=== PATIENT | female | born 1995 | race Caucasian/White ===

== ENCOUNTER 2018-03-04 18:05 | Outpatient (CLI) | payer OTHER ==
[2018-03-04 18:58] LABS: APPEARANCE,URINE SLIGHTLY-CLOUDY; BILIRUBIN,URINE NEGATIVE (NEGATIVE); COLOR,URINE YELLOW; GLUCOSE, URINE NEGATIVE (NEGATIVE); KETONES,URINE NEGATIVE (NEGATIVE); LEUKOCYTE ESTERASE,URINE SMALL (NEGATIVE); NITRITE,URINE NEGATIVE (NEGATIVE); PROTEIN,URINE NEGATIVE (NEGATIVE); URINE SPECIFIC GRAVITY 1.012; UROBILINOGEN,URINE NEGATIVE mg/dL (<2.0)
--- NOTE | 2018-03-04 19:11 | Non Stress Test Report ---
Non Stress Test Datetime Report Generated by CPN: 03/04/2018 19:11 DEMOGRAPHIC EGA NST: 32.3 INDICATION Indication for Study: Ordered by Provider MONITORING Monitor Explained: Monitor Explained; Test Explained; Patient Verbalized Understanding Time on Monitor: 03/04/2018 18:24 Time off Monitor: 03/04/2018 19:10 NST Duration: 46 NST INTERVENTIONS NST Interventions: PO Hydration; Reposition Patient Physician Notified NST: Dr.Arriaga BABY A: [id number] BABY A Movement : Present Contraction Frequency : 0 FHR Baseline : 130 Accelerations : 15X15 Decelerations : None Variability : Moderate 6-25bpm NST Review: Meets Criteria for Reactive NST NST Results: Reactive NST REPORT Report Trigger: Send Report
[2018-03-04 19:13] LABS: URINE AMPHETAMINES SCREEN NEGATIVE; URINE BARBITURATES SCREEN NEGATIVE; URINE BENZODIAZEPINES SCREEN NEGATIVE; URINE COCAINE SCREEN NEGATIVE; URINE MARIJUANA (THC) SCREEN NEGATIVE; URINE PHENCYCLIDINE SCREEN NEGATIVE
[2018-03-04 19:23] LABS: URINE METHADONE SCREEN NEGATIVE
== END 2018-03-04 19:15 | disposition home or self-care (01) ==
LOC: LC 18:05
PROVIDERS: ATTEND Obstetrics & Gynecology Gynecology
PROC: 4A1HXCZ Monitoring of Products of Conception, Cardiac Rate, External Approach (ICD-10-PCS; principal; 2018-03-04)
DX: O9A.213 Injury, poisoning and certain other consequences of external causes complicating pregnancy, third trimester (principal); Z3A.32 32 weeks gestation of pregnancy; W19.XXXA Unspecified fall, initial encounter
CPT/HCPCS: 59025; 80307; 81001

== ENCOUNTER 2018-05-01 18:37 | Outpatient (CLI) | payer OTHER ==
[2018-05-01 19:42] LABS: APPEARANCE,URINE CLOUDY; BILIRUBIN,URINE NEGATIVE (NEGATIVE); COLOR,URINE YELLOW; GLUCOSE, URINE NEGATIVE (NEGATIVE); KETONES,URINE NEGATIVE (NEGATIVE); LEUKOCYTE ESTERASE,URINE LARGE (NEGATIVE); NITRITE,URINE NEGATIVE (NEGATIVE); PROTEIN,URINE NEGATIVE (NEGATIVE); UROBILINOGEN,URINE NEGATIVE mg/dL (<2.0)
[2018-05-01 19:59] LABS: URINE AMPHETAMINES SCREEN NEGATIVE; URINE BARBITURATES SCREEN NEGATIVE; URINE BENZODIAZEPINES SCREEN NEGATIVE; URINE COCAINE SCREEN NEGATIVE; URINE MARIJUANA (THC) SCREEN NEGATIVE; URINE METHADONE SCREEN NEGATIVE; URINE PHENCYCLIDINE SCREEN NEGATIVE
== END 2018-05-01 20:26 | disposition home or self-care (01) ==
LOC: LC 18:37
PROVIDERS: ATTEND Obstetrics & Gynecology
PROC: 4A1HXCZ Monitoring of Products of Conception, Cardiac Rate, External Approach (ICD-10-PCS; principal; 2018-05-01)
DX: O48.0 Post-term pregnancy (principal); Z3A.40 40 weeks gestation of pregnancy
CPT/HCPCS: 80307; 81005

== ENCOUNTER 2018-05-04 06:33 | Inpatient (IN) | payer OTHER ==
[2018-05-04] MEDS ORDERED: RINGERS SOLUTION,LACTATED 300 ML IV ONE (06:41)
[2018-05-04] MEDS ORDERED: RINGERS SOLUTION,LACTATED 1,000 ML IV PRN (06:41)
[2018-05-04] MEDS ORDERED: OXYTOCIN/NORMAL SALINE 20 UNIT/1,000 ML RTUINJ IV PRN (06:41)
[2018-05-04 07:21] LABS: ABSOLUTE BASOPHILS # (AUTO) 0.1 10^3/uL (0.0-0.2); ABSOLUTE EOSINOPHILS # (AUTO) 0.1 10^3/uL (0.0-0.6); ABSOLUTE LYMPHOCYTES (AUTO) 1.6 10^3/uL (0.5-4.7); ABSOLUTE MONOCYTES (AUTO) 0.8 10^3/uL (0.1-1.4); ABSOLUTE NEUT (AUTO) 10.1 10^3/uL (1.7-8.2); BASOPHILS % (AUTO) 0.4 % (0-2); EOSINOPHILS % (AUTO) 0.6 % (0-6); HEMATOCRIT 33.6 % (36.0-47.0); HEMOGLOBIN 11.8 g/dL (12.0-15.5); LYMPHOCYTES % (AUTO) 12.6 % (13-45); MEAN CORPUSCULAR HEMOGLOBIN 30.8 pg (27.0-33.4); MEAN CORPUSCULAR HGB CONC 35.2 g/dL (32.0-36.0); MEAN CORPUSCULAR VOLUME 88 fl (80-97); MONOCYTES % (AUTO) 6.1 % (3-13); PLATELET COUNT 161 10^3/uL (150-450); RED BLOOD COUNT 3.84 10^6/uL (3.72-5.28); SEGMENTED NEUTROPHILS % (AUTO) 80.3 % (42-78); TOTAL CELLS COUNTED % (AUTO) 100 %; WHITE BLOOD COUNT 12.5 10^3/uL (4.0-10.5)
[2018-05-04] MEDS ORDERED: OXYTOCIN 10 UNIT/ML VIAL ONE (07:26)
[2018-05-04] MEDS ORDERED: OXYTOCIN/NORMAL SALINE 20 UNIT/1,000 ML RTUINJ ONE (07:26)
[2018-05-04] MEDS ORDERED: MISOPROSTOL 0.2 MG TABLET ONE (07:26)
[2018-05-04] MEDS ORDERED: LIDOCAINE 1% INJ-PF (10 MG/ML) 30 ML SDV ONE (07:26)
[2018-05-04 07:53] LABS: APPEARANCE,URINE CLOUDY; BILIRUBIN,URINE NEGATIVE (NEGATIVE); COLOR,URINE YELLOW; GLUCOSE, URINE NEGATIVE (NEGATIVE); KETONES,URINE NEGATIVE (NEGATIVE); LEUKOCYTE ESTERASE,URINE LARGE (NEGATIVE); NITRITE,URINE NEGATIVE (NEGATIVE); PROTEIN,URINE NEGATIVE (NEGATIVE); URINE SPECIFIC GRAVITY 1.014; UROBILINOGEN,URINE NEGATIVE mg/dL (<2.0)
[2018-05-04 08:14] LABS: URINE AMPHETAMINES SCREEN NEGATIVE; URINE BARBITURATES SCREEN NEGATIVE; URINE BENZODIAZEPINES SCREEN NEGATIVE; URINE COCAINE SCREEN NEGATIVE; URINE MARIJUANA (THC) SCREEN NEGATIVE; URINE METHADONE SCREEN NEGATIVE; URINE PHENCYCLIDINE SCREEN NEGATIVE
--- NOTE | 2018-05-04 11:51 | Admission Physical ---
Datetime Report Generated by CPN: 05/04/2018 11:51 CURRENT ADMISSION Chief Complaint: Scheduled Induction of Labor Indication for Induction: Post Dates Admit Impression : , Intrauterine Admit Plan: Initiate Labor Protocol ALLERGIES Medication Allergies: Yes Medication Allergies: Sulfa (Sulfonamide Antibiotics) (05/04/2018) Latex: No Latex Allergies Food Allergies: almonds Environmental Allergies: n/a OBSTETRICAL HISTORY EDC: 04/26/2018 00:00 : 1 Para: 0 Term: 0 : 0 SAB: 0 IAB: 0 Ectopic: 0 Livin Cesareans: 0 VBACs: 0 Multiple Births: 0 Gestational Diabetes: No Rh Sensitization: No Incompetent Cervix: No FREDERIC: No Infertility: No ART Treatment: No Uterine Anomaly: No IUGR: No Hx Previous C/S: No Macrosomia: No Hx Loss/Stillborn: No PIH: No Hx : No Placenta Previa/Abruption: No Depression/PP Depression: No PTL/PROM: No Post Hemorrhage: No Current Procedures: Ultrasound Obstetrical History Comments: G1- current SEE RECORDS Alcohol: No Marijuana : No Cocaine: No Other Illicit Drugs: No Cigarettes: Never Smoker. [id number] MEDICAL HISTORY Diabetes: No Blood Transfusion: No Pulmonary Disease (Asthma, TB): No Breast Disease: No Hypertension: No Contract Design Agent Surgery: No Heart Disease: No Hosp/Surgery: Yes Autoimmune Disorder: No Anesthetic Complications: No Kidney Disease: Yes Abnormal Pap Smear: No Neuro/Epilepsy: No Psychiatric Disorders: No Other Medical Diseases: No Hepatitis/Liver Disease: No Significant Family History: No Varicosities/Phlebitis: No Trauma/Violence : No Thyroid Dysfunction: No Medical History Comments: frequent UTI's in high school, hospitalized for UTI x1wk cyst on L kidney, wisdom teeth removed INFECTIOUS HISTORY Gonorrhea: No Genital Herpes: No Chlamydia: No Tuberculosis: No Syphilis: No Hepatitis: No HIV/AIDS Exposure: No Rash or Viral Illness: No HPV: No PHYSICAL EXAM General: Normal HEENT: Normal Neurologic: Normal Thyroid: Deferred Heart: Normal Lungs: Normal Breast: Deferred Back: Normal Abdomen: Normal Genitourinary Exam: Normal Extremities: Normal DTRs: Deferred Pelvic Type: Adequate Vital Signs: Reviewed; Within Normal Limits VAGINAL EXAM Dilatation: 1 Effacement: 50 Station: -3 by EDI Ramos Contraction Comments: q3mins MEMBRANES Pooling: Negative FETUS A EGA: 41.1 Monitoring: External US FHR- Baseline: 135 Variability: Moderate 6-25bpm Decelerations: None Estimated Weight (gm): 3300 Presentation: vtx Admit Comment: at 41w by LMP c/w 1st trimester sono. admitted for IOL, now on pitocin 10mu/min, not in pain. discussed boudreaux balloon-pt agrees with plan. PLANS FOR LABOR AND DELIVERY Labor and Delivery: None Pain Management: Epidural Feeding Preference: Breast Benefit of Breast Feed Discussed: Yes Circumcision: N/A INFORMED CONSENT Assignment: Annetta Hernandez MD Signature: with User ID: [email or web address] : with User ID: [email or web address]
[2018-05-04] MEDS ORDERED: LIDOCAINE 2%/EPINEPHRINE INJ 20 ML VIAL ONE (20:11)
[2018-05-04] MEDS ORDERED: PHENYLEPHRINE HCL INJ/PF 10 MG/1 ML SDV ONE (20:39)
[2018-05-04] MEDS ORDERED: EPHEDRINE SULFATE INJ 50 MG/1 ML AMPULE ONE (20:40)
[2018-05-04] MEDS ORDERED: FENTANYL CITRATE INJ/PF 100 MCG/2 ML AMPUL ONE (20:40)
[2018-05-04] MEDS ORDERED: FENTANYL/BUPIVACAINE/NS/PF 300 MCG/150 ML RTUINJ EPI ONE (20:40)
[2018-05-04] MEDS ORDERED: BUPIVACAINE HCL 0.25 % INJ/PF (2.5 MG/1 ML) 30 ML VIAL ONE (20:40)
[2018-05-05] MEDS ORDERED: PROMETHAZINE HCL 25 MG TABLET PO PRN (02:14)
[2018-05-05] MEDS ORDERED: MEASLES,MUMPS&RUBELLA VACC/PF 0.5 ML VIAL SUBCUT PRN (02:14)
[2018-05-05] MEDS ORDERED: ZOLPIDEM TARTRATE 5 MG TABLET PO PRN (02:14)
[2018-05-05] MEDS ORDERED: ACETAMINOPHEN WITH CODEINE #3 TABLET PO PRN (02:14)
[2018-05-05] MEDS ORDERED: OXYTOCIN/NORMAL SALINE 20 UNIT/1,000 ML RTUINJ IV PRN (02:14)
[2018-05-05] MEDS ORDERED: DIPH/PERTUSS(ACELL)/TETANUS VAC/PF 0.5 ML SYR (>=10YO) IM PRN (02:14)
[2018-05-05] MEDS ORDERED: ACETAMINOPHEN 650 MG SUPP.RECT PR PRN (02:14)
[2018-05-05] MEDS ORDERED: PSEUDOEPHEDRINE HCL 30 MG TABLET PO PRN (02:14)
[2018-05-05] MEDS ORDERED: PROMETHAZINE HCL INJ 25 MG/1 ML VIAL IV PRN (02:14)
[2018-05-05] MEDS ORDERED: BENZOCAINE/MENTHOL AEROSOL SPRAY 56 ML TOP PRN (02:14)
[2018-05-05] MEDS ORDERED: DIPHENHYDRAMINE HCL 25 MG CAPSULE PO PRN (02:14)
[2018-05-05] MEDS ORDERED: DIBUCAINE 1% OINTMENT 56 GM TP PRN (02:14)
[2018-05-05] MEDS ORDERED: PROMETHAZINE HCL 25 MG SUPP.RECT PR PRN (02:14)
[2018-05-05] MEDS ORDERED: NA PHOS,M-B/NA PHOS,DI-BA (ADULT) 133 ML ENEMA PR PRN (02:14)
[2018-05-05] MEDS ORDERED: GLYCERIN/WITCH HAZEL LEAF 1 EACH MED..PAD TP PRN (02:14)
[2018-05-05] MEDS ORDERED: MAGNESIUM HYDROXIDE SUSP 30 ML UDCUP PO PRN (02:14)
[2018-05-05] MEDS ORDERED: OXYTOCIN/NORMAL SALINE 20 UNIT/1,000 ML RTUINJ ONE (02:24)
[2018-05-05] MEDS ORDERED: IBUPROFEN 800 MG TABLET PO ONE (03:00)
--- NOTE | 2018-05-05 04:18 | Delivery Summary ---
Del Sum A-C Datetime Report Generated by CPN: 05/05/2018 04:17 DELIVERY PERSONNEL DELIVERY PERSONNEL: [id number] Delivery Doctor:: Annetta Hernandez MD Labor and Delivery Nurse:: Kaylee Hamilton RNstick welder Nurse:: Debra Bhatia RN Railroad Auditor/LUMP MACHINE OPERATOR: Marilin Ross, ST MATERNAL INFORMATION Delivery Anesthesia: Epidural Medications After Delivery: Pitocin Drip 20 Units/1000ml NSS Estimated Blood Loss (ml): 200 Maternal Complications: None LABOR SUMMARY EDC: 04/26/2018 00:00 No. Babies in Womb: 1 Attempted: No Labor Anesthesia: Epidural LABOR INFORMATION Reason for Induction: Post Dates Onset of Labor: 05/04/2018 18:03 Complete Dilatation: 05/04/2018 23:51 Cervical Ripening Agents: Vigil Balloon Oxytocin: Induction Group B Beta Strep: negative Antibiotics # of Doses: 0 Antibiotics Time of Last Dose: N/A Name of Antibiotic Given: N/A Steroids Given: None Reason Steroids Not Administered: Not Applicable MEMBRANES Membranes Rupture Method: Artificial Rupture of Membranes: 05/04/2018 19:56 Length of Rupture (hr): 6.17 Amniotic Fluid Color: Clear Amniotic Fluid Amount: Small Amniotic Fluid Odor: None STAGES OF LABOR Stage 1 hr: 5 Stage 1 min: 48 Stage 2 hr: 2 Stage 2 min: 15 Stage 3 hr: 0 Stage 3 min: 3 Total Time in Labor hr: 8 Total Time in Labor min: 6 VAGINAL DELIVERY Episiotomy: None Laceration #1: None Laceration Extension #1: N/A Laceration Repair: Not Applicable Sponge Count Correct: Yes Sharps Count Correct: Yes CSECTION DELIVERY Primary Indication: N/A Secondary Indication: N/A CSection Incidence: N/A Labor: N/A Elective: N/A CSection Incision: N/A BABY A INFORMATION Delivery Date/Time: 05/05/2018 02:06 Method of Delivery: Vaginal Born in Route : No : N/A Forceps: N/A Vacuum Extraction: N/A Shoulder Dystocia : No PRESENTATION/POSITION BABY A Presentation: Cephalic Cephalic Presentation: Vertex Vertex Position: Right Occipital Posterior Breech Presentation: N/A PLACENTA INFORMATION BABY A Placenta Delivery Time : 05/05/2018 02:09 Placenta Method of Delivery: Spontaneous Placenta Status: Delivered SCORES BABY A Heart Rate 1 min: >100 bpm Resp Effort 1 min: Slow, Irregular Reflex Irritability 1 min: Cough or Sneeze or Pulls Away Muscle Tone 1 min: Active Motion Color 1 min: Blue/Pale SCORE 1 MIN: 7 Heart Rate 5 min: >100 bpm Resp Effort 5 min: Slow, Irregular Reflex Irritability 5 min: Cough or Sneeze or Pulls Away Muscle Tone 5 min: Active Motion Color 5 min: Body [place], Extremities Blue SCORE 5 MIN: 8 INFANT INFORMATION BABY A Gestational Age at Delivery: 41.2 Gestational Status: Late Term- 41- 41.6 Weeks Infant Outcome : Liveborn Condition : Stable Sex: Female IDENTIFICATION BABY A Verification Date/Time: 05/05/2018 02:33 ID Band Number: [id number] Mother's Name Verified: Yes Infant RN Verifying : NDoyle RN, EJilek RN WEIGHT/LENGTH BABY A Birthweight (gm): 3503 Weight (lb): 7 Infant Weight (oz): 12 Length (in): 19.50 Length (cm): 49.53 CORD INFORMATION BABY A No. Cord Vessels: 3 Nuchal Cord : N/A Cord Blood Taken: Yes-For Eval (Mom's Blood Type - or O+) Suction: Mouth; Nose ASSESSMENT BABY A Skin to Skin: Yes BABY B INFORMATION : N/A SIGNATURES Signature: with User ID: [email or web address] : [place] was personally available for consultation and serving as supervising physician for the MLP.
[2018-05-05] MEDS: IBUPROFEN 800 MG TABLET PO SCH ×3 (06:27→22:32)
[2018-05-05] MEDS: ACETAMINOPHEN WITH CODEINE #3 TABLET PO PRN ×2 (08:09→18:02)
[2018-05-05] MEDS: FAMOTIDINE 20 MG TABLET PO SCH ×2 (11:26→22:31)
[2018-05-05] MEDS: FERROUS SULFATE 325 MG TABLET PO SCH ×2 (11:26→18:03)
[2018-05-05] MEDS: SENNOSIDES/DOCUSATE 8.6-50 MG 1 EACH TABLET PO SCH (11:26)
[2018-05-05] MEDS: DOCUSATE SODIUM 100 MG CAPSULE PO SCH ×2 (11:26→18:03)
[2018-05-05] MEDS: PRENATAL VITAMIN W DHA CAPSULE PO SCH (11:26)
--- NOTE | 2018-05-05 11:42 | PDOC PROGRESS REPORT ---
Subjective-OB Progress Note for:: 05/05/18 Subjective: 22yo G1 now P1 s/p delivery day. Pt. ambulating, without difficulty, reports pain well tolerated with pain medication. Denies any concerns Physical Exam (OB) Vital Signs: Temp Pulse Resp BP Pulse Ox 97.9 F 71 18 129/81 H 100 05/05/18 07:55 05/05/18 07:55 05/05/18 07:55 05/05/18 07:55 05/05/18 07:55 Intake & Output 05/04/18 05/05/18 05/06/18 06:59 06:59 06:59 Weight 75.7 kg - General General Appearance: Appears well In distress: None - PIH/Pre-Eclampsia Clonus: Negative Headache: Absent Epigastric Pain: No Visual Changes: No - Episiotomy/Laceration Site Condition: N/A - Lochia Lochia Amount: Scant < 10 ml Lochia Color: Rubra/Red - Abdomen Description: Soft, Flat Hernia Present: No Fundal Description: Firm Fundal Height: u/u - u/2 - Respiratory Respiratory Status: No respiratory distress - Extremities Upper extremity: Normal inspection Lower extremities: Normal inspection - Neurological Cognition: Normal Orientation: AAOx4 - Psychological Associated symptoms: Normal affect, Normal mood Objective-Diagnostic Laboratory: 05/04/18 07:09 Assessment and Plan(PN) - Assessment and Plan (1) Delivery normal Is this a current diagnosis for this admission?: Yes Plan: Routine pp care, continue to monitor for s/s of infection - Time Spent with Patient Time with patient: Less than 15 minutes Medications reviewed and adjusted accordingly: Yes - Disposition Anticipated Discharge: Home Within: within 48 hours
[2018-05-06 08:12] LABS: HEMOGLOBIN 10.1 g/dL (12.0-15.5); MEAN CORPUSCULAR HEMOGLOBIN 30.9 pg (27.0-33.4); MEAN CORPUSCULAR VOLUME 88 fl (80-97); PLATELET COUNT 141 10^3/uL (150-450); RED BLOOD COUNT 3.28 10^6/uL (3.72-5.28); RED CELL DISTRIBUTION WIDTH 14.5 % (11.5-14.0); WHITE BLOOD COUNT 15.3 10^3/uL (4.0-10.5)
[2018-05-06] MEDS: SENNOSIDES/DOCUSATE 8.6-50 MG 1 EACH TABLET PO SCH (10:06)
[2018-05-06] MEDS: FERROUS SULFATE 325 MG TABLET PO SCH ×2 (10:06→18:22)
[2018-05-06] MEDS: DOCUSATE SODIUM 100 MG CAPSULE PO SCH ×2 (10:06→18:22)
[2018-05-06] MEDS: FAMOTIDINE 20 MG TABLET PO SCH ×2 (10:06→22:15)
[2018-05-06] MEDS: PRENATAL VITAMIN W DHA CAPSULE PO SCH (10:06)
[2018-05-06] MEDS: IBUPROFEN 800 MG TABLET PO SCH ×3 (10:39→22:15)
[2018-05-06] MEDS ORDERED: MEASLES,MUMPS&RUBELLA VACC/PF 0.5 ML VIAL SUBCUT PRN (11:00)
[2018-05-06] MEDS ORDERED: DIPH/PERTUSS(ACELL)/TETANUS VAC/PF 0.5 ML SYR (>=10YO) IM PRN (11:00)
[2018-05-06] MEDS ORDERED: PROMETHAZINE HCL INJ 25 MG/1 ML VIAL IV PRN (11:00)
--- NOTE | 2018-05-06 11:56 | PDOC PROGRESS REPORT ---
Subjective-OB Progress Note for:: 05/06/18 - PP day #1, pt c/o a knot and pain in the back of her Rt thigh area. denies SOB or CP. Physical Exam (OB) Vital Signs: Temp Pulse Resp BP Pulse Ox 98.0 F 92 16 107/63 99 05/06/18 08:11 05/06/18 08:11 05/06/18 08:11 05/06/18 08:11 05/06/18 08:11 Intake & Output 05/05/18 05/06/18 05/07/18 06:59 06:59 06:59 Intake Total 300 Balance 300 Weight 75.7 kg - General General Appearance: Appears well, Alert In distress: None - PIH/Pre-Eclampsia Clonus: Negative Headache: Absent Epigastric Pain: No Visual Changes: No - Lochia Lochia Amount: Small 10-25 ml Lochia Color: Rubra/Red - Abdomen Description: Soft, Round Hernia Present: No Fundal Description: Firm, Midline Fundal Height: u/u - u/2 - Respiratory Respiratory Status: No respiratory distress - Abdominal Inspection: Normal Distension: No distension - Extremities Upper extremity: Normal inspection Lower extremities: Normal inspection Thigh: Other - no mass palpable, no swelling or erythema noted Calf: Normal - Neurological Cognition: Normal Orientation: AAOx4 - Psychological Associated symptoms: Normal affect, Normal mood - Skin Skin Temperature: Warm Skin Moisture: Dry Objective-Diagnostic Laboratory: 05/06/18 08:00 05/06/18 05/06/18 08:00 08:00 WBC 15.3 H RBC 3.28 L Hgb 10.1 L Hct 29.0 L MCV 88 MCH 30.9 MCHC 35.0 RDW 14.5 H Plt Count 141 L Blood Type O NEGATIVE Assessment and Plan(PN) - Assessment and Plan (1) Delivery normal Is this a current diagnosis for this admission?: Yes Plan:: Will order venous doppler u/s of Rt leg today - Time Spent with Patient Time with patient: Less than 15 minutes Medications reviewed and adjusted accordingly: Yes - Disposition Anticipated Discharge: Home Within: within 24 hours
--- NOTE | 2018-05-06 13:52 | XCELERA REPORT ---
[address] [place] [facility] [address] Lower Extremity Venous Evaluation Procedure: Color flow and duplex imaging of the veins of the right lower extremity as well as the left Common Femoral vein. Right Sided Venous Evaluation Normal vessel filling wall to wall, compression and augmentation as well as Colour flow down to the infrageniculate veins. Left Sided Venous Evaluation The left common femoral vein is fully compressible. Spontaneous and phasic flow is present in the left common femoral vein. Interpretation Summary No duplex evidence of DVT or obstruction in the right lower extremity nor in the left Common Femoral vein. Name: JUJU DIALLO Age: 22 yrs Gender: Female : 1995 Patient Status: Inpatient Patient Location: [facility]^A Study Date: 05/06/2018 12:13 PM Reason For Study: pain in the back of Rt thigh , pt is Ordering Physician: HAYDEN DOMINGO Performed By: Mirtha Westbrook : HAYDEN DOMINGO > Riley Finnegan
[2018-05-06] MEDS: ACETAMINOPHEN WITH CODEINE #3 TABLET PO PRN (18:25)
[2018-05-07] MEDS: IBUPROFEN 800 MG TABLET PO SCH (06:44)
--- NOTE | 2018-05-07 09:58 | PDOC DISCHARGE SUMMARY ---
Final Diagnosis Discharge Date: 05/07/18 - Final Diagnosis (1) Delivery normal Is this a current diagnosis for this admission?: Yes Discharge Data - Discharge Medication Prescriptions: Ibuprofen [Motrin 800 mg Tablet] 800 mg PO Q8HP PRN #60 tablet PRN Reason: Home Medications: Vit,Calc76/Iron/Folic [Prenatabs Rx Tablet] 1 tab PO DAILY 03/04/18 Ibuprofen [Motrin 800 mg Tablet] 800 mg PO Q8HP PRN #60 tablet 05/07/18 Procedures: NST Intrapartum Procedure(s): Spontaneous Vaginal Delivery - Diagnosis Test Laboratory: Temp Pulse Resp BP Pulse Ox 97.7 F 74 18 122/72 98 05/07/18 08:28 05/07/18 08:28 05/07/18 08:28 05/07/18 08:28 05/07/18 08:28 05/04/18 05/04/18 05/06/18 06:35 07:09 08:00 RBC 3.84 3.28 L Hgb 11.8 L 10.1 L Hct 33.6 L 29.0 L Urine Opiates Screen NEGATIVE - Discharge information/Instructions Discharge Activity: Balance Activity w/Rest, Pelvic Rest Discharge Diet: Regular Disposition: HOME, SELF-CARE Follow up with: [facility] in: 4, Weeks
[2018-05-07] MEDS: FERROUS SULFATE 325 MG TABLET PO SCH (09:59)
[2018-05-07] MEDS: SENNOSIDES/DOCUSATE 8.6-50 MG 1 EACH TABLET PO SCH (09:59)
[2018-05-07] MEDS: DOCUSATE SODIUM 100 MG CAPSULE PO SCH (09:59)
[2018-05-07] MEDS: PRENATAL VITAMIN W DHA CAPSULE PO SCH (09:59)
[2018-05-07] MEDS: FAMOTIDINE 20 MG TABLET PO SCH (09:59)
[2018-05-07 12:18] VITALS: BP 129/81
== END 2018-05-07 12:48 | disposition home or self-care (01) | DRG 807 ==
LOC: LR 06:33 → 2S 05-05 04:30
PROVIDERS: ADMIT Obstetrics & Gynecology; ATTEND Obstetrics & Gynecology
PROC: 3E033VJ Introduction of Other Hormone into Peripheral Vein, Percutaneous Approach (ICD-10-PCS; 2018-05-04)
PROC: 10907ZC Drainage of Amniotic Fluid, Therapeutic from Products of Conception, Via Natural or Artificial Opening (ICD-10-PCS; 2018-05-04)
PROC: 4A1HXCZ Monitoring of Products of Conception, Cardiac Rate, External Approach (ICD-10-PCS; 2018-05-04)
PROC: 10E0XZZ Delivery of Products of Conception, External Approach (ICD-10-PCS; principal; 2018-05-05)
DX: O48.0 Post-term pregnancy (principal); Z37.0 Single live birth; Z88.2 Allergy status to sulfonamides; Z91.018 Allergy to other foods; Z3A.41 41 weeks gestation of pregnancy
CPT/HCPCS: 36415; 80307; 81005; 85025; 85027; 85461; 86592; 86850; 86870; 86900; 86901; 93971; C1758; J2370; J2590; J2790; J3010; J3490

== ENCOUNTER 2020-02-22 05:43 | Inpatient (IN) | payer OTHER ==
[2020-02-22] MEDS ORDERED: OXYTOCIN/0.9 % SODIUM CHLORIDE 30 UNIT/500 ML RTUINJ IV PRN ×2 (05:54→13:53)
[2020-02-22] MEDS ORDERED: ACETAMINOPHEN 325 MG TABLET PO PRN ×2 (05:54→13:53)
[2020-02-22] MEDS ORDERED: RINGERS SOLUTION,LACTATED 500 ML IV ONE (05:54)
[2020-02-22] MEDS ORDERED: ZOLPIDEM TARTRATE 5 MG TABLET PO PRN ×2 (05:54→13:53)
[2020-02-22] MEDS ORDERED: MAG HYDROX/AL HYDROX/SIMETH SUSP 30 ML UDCUP PO PRN ×2 (05:54→13:53)
[2020-02-22] MEDS ORDERED: RINGERS SOLUTION,LACTATED 300 ML IV ONE (05:54)
[2020-02-22] MEDS ORDERED: RINGERS SOLUTION,LACTATED 1,000 ML IV PRN ×2 (05:54)
[2020-02-22] MEDS ORDERED: PENICILLIN G POTASSIUM 5,000,000 UNIT in DEXTROSE 5%-WATER 100 ML IV ONE (05:54)
[2020-02-22] MEDS ORDERED: OXYTOCIN/0.9 % SODIUM CHLORIDE 30 UNIT/500 ML RTUINJ ONE (06:27)
[2020-02-22] MEDS ORDERED: OXYTOCIN 10 UNIT/ML VIAL ONE (06:27)
[2020-02-22] MEDS ORDERED: LIDOCAINE 1% INJ-PF (10 MG/ML) 30 ML SDV ONE (06:27)
[2020-02-22] MEDS ORDERED: MISOPROSTOL 0.2 MG TABLET ONE (06:27)
[2020-02-22] MEDS ORDERED: PENICILLIN G-K 5 MILLION UNIT VIAL ONE (06:28)
[2020-02-22 07:04] LABS: ABSOLUTE EOSINOPHILS # (AUTO) 0.2 10^3/uL (0.0-0.6); ABSOLUTE LYMPHOCYTES (AUTO) 1.7 10^3/uL (0.5-4.7); ABSOLUTE MONOCYTES (AUTO) 0.9 10^3/uL (0.1-1.4); BASOPHILS % (AUTO) 0.3 % (0-2); EOSINOPHILS % (AUTO) 1.3 % (0-6); HEMATOCRIT 29.6 % (36.0-47.0); HEMOGLOBIN 10.5 g/dL (12.0-15.5); LYMPHOCYTES % (AUTO) 14.8 % (13-45); MEAN CORPUSCULAR HEMOGLOBIN 30.1 pg (27.0-33.4); MEAN CORPUSCULAR HGB CONC 35.6 g/dL (32.0-36.0); MEAN CORPUSCULAR VOLUME 85 fl (80-97); MONOCYTES % (AUTO) 7.5 % (3-13); PLATELET COUNT 165 10^3/uL (150-450); RED CELL DISTRIBUTION WIDTH 13.8 % (11.5-14.0); SEGMENTED NEUTROPHILS % (AUTO) 76.1 % (42-78); TOTAL CELLS COUNTED % (AUTO) 100 %; WHITE BLOOD COUNT 11.8 10^3/uL (4.0-10.5)
[2020-02-22 08:48] LABS: BILIRUBIN,URINE NEGATIVE (NEGATIVE); GLUCOSE, URINE NEGATIVE (NEGATIVE); KETONES,URINE NEGATIVE (NEGATIVE); LEUKOCYTE ESTERASE,URINE LARGE (NEGATIVE); NITRITE,URINE NEGATIVE (NEGATIVE); PROTEIN,URINE NEGATIVE (NEGATIVE); URINE SPECIFIC GRAVITY 1.005; UROBILINOGEN,URINE NEGATIVE mg/dL (<2.0)
[2020-02-22 08:50] LABS: APPEARANCE,URINE HAZY; COLOR,URINE LIGHT YELLOW
[2020-02-22 09:00] LABS: URINE AMPHETAMINES SCREEN NEGATIVE; URINE BARBITURATES SCREEN NEGATIVE; URINE BENZODIAZEPINES SCREEN NEGATIVE; URINE COCAINE SCREEN NEGATIVE; URINE MARIJUANA (THC) SCREEN NEGATIVE; URINE METHADONE SCREEN NEGATIVE; URINE PHENCYCLIDINE SCREEN NEGATIVE
[2020-02-22] MEDS ORDERED: EPHEDRINE SULFATE INJ 50 MG/1 ML AMPULE ONE (10:07)
[2020-02-22] MEDS ORDERED: ROPIVACAINE HCL 0.2% INJ/PF (2 MG/ML) 20 ML SDV ONE (10:07)
[2020-02-22] MEDS ORDERED: FENTANYL/BUPIVACAINE/NS/PF 300 MCG/150 ML RTUINJ EPI ONE (10:07)
[2020-02-22] MEDS ORDERED: PENICILLIN G POTASSIUM 5,000,000 UNIT in DEXTROSE 5%-WATER 100 ML IV SCH (10:30)
[2020-02-22] MEDS: PENICILLIN G POTASSIUM 2,500,000 UNIT in DEXTROSE 5%-WATER 50 ML IV SCH ×2 (10:59→17:29)
[2020-02-22] MEDS ORDERED: NORMAL SALINE 250 ML IV PRN ×2 (12:10)
--- NOTE | 2020-02-22 12:11 | Admission Physical ---
Datetime Report Generated by CPN: 02/22/2020 12:11 CURRENT ADMISSION Chief Complaint: Scheduled Induction of Labor Chief Complaint Other: arrived at 6am, pitocin started at 8am Indication for Induction: Post Dates Admit Impression : Term, Intrauterine ; No Active Labor Admit Plan: Admit to Unit Admit Plan- Other: +GBS ALLERGIES Medication Allergies: Yes Medication Allergies: Sulfa (Sulfonamide Antibiotics) (02/22/2020) Latex: No Latex Allergies Food Allergies: no Environmental Allergies: no OBSTETRICAL HISTORY EDC: 02/16/2020 00:00 : 2 Para: 1 Term: 1 : 0 SAB: 0 IAB: 0 Ectopic: 0 Livin Cesareans: 0 VBACs: 0 Multiple Births: 0 Gestational Diabetes: No Rh Sensitization: No Incompetent Cervix: No FREDERIC: No Infertility: No ART Treatment: No Uterine Anomaly: No IUGR: No Hx Previous C/S: No Macrosomia: No Hx Loss/Stillborn: No PIH: No Hx : No Placenta Previa/Abruption: No Depression/PP Depression: No PTL/PROM: No Post Hemorrhage: No Current Procedures: Ultrasound Obstetrical History Comments: 2018 G2- Current SEE RECORDS Alcohol: No Marijuana : No Cocaine: No Other Illicit Drugs: No Cigarettes: Never Smoker. [id number] MEDICAL HISTORY Diabetes: No Blood Transfusion: No Pulmonary Disease (Asthma, TB): No Breast Disease: No Hypertension: No C Python Developer Surgery: No Heart Disease: No Hosp/Surgery: Yes Autoimmune Disorder: No Anesthetic Complications: No Kidney Disease: Yes Abnormal Pap Smear: No Neuro/Epilepsy: No Psychiatric Disorders: No Other Medical Diseases: No Hepatitis/Liver Disease: No Significant Family History: No Varicosities/Phlebitis: No Trauma/Violence : No Thyroid Dysfunction: No Medical History Comments: kidney infection in 11th grade, childbirth INFECTIOUS HISTORY Gonorrhea: No Genital Herpes: No Chlamydia: No Tuberculosis: No Syphilis: No Hepatitis: No HIV/AIDS Exposure: No Rash or Viral Illness: No HPV: No PHYSICAL EXAM General: Normal HEENT: Deferred Neurologic: Normal Thyroid: Deferred Heart: Normal Lungs: Normal Breast: Deferred Back: Deferred Abdomen: Normal Genitourinary Exam: Normal Extremities: Normal DTRs: Deferred Pelvic Type: Adequate Physical Exam Comments: was 3/80/-1 on 02/20 per Alejandrina Mahoney CNM at [facility] Vital Signs: Reviewed FETUS A EGA: 40.6 Monitoring: External US FHR- Baseline: 145 Variability: Moderate 6-25bpm Accelerations: 15X15 Decelerations: None FHR Category: Category I Presentation: Vertex Admit Comment: admitted for scheduled IOL this am GBS treatment started PLANS FOR LABOR AND DELIVERY Labor and Delivery: None Pain Management: Epidural Feeding Preference: Breast INFORMED CONSENT Assignment: Cash Arriaga MD Signature: with User ID: [email or web address] : with User ID: [email or web address]
[2020-02-22] MEDS ORDERED: MAGNESIUM HYDROXIDE SUSP 30 ML UDCUP PO PRN (13:53)
[2020-02-22] MEDS ORDERED: MEASLES,MUMPS&RUBELLA VACC/PF 0.5 ML VIAL SUBCUT PRN (13:53)
[2020-02-22] MEDS ORDERED: ACETAMINOPHEN 650 MG SUPP.RECT PR PRN (13:53)
[2020-02-22] MEDS ORDERED: VARICELLA VACC/PF (1350 UNIT/0.5 ML) 0.5 ML VIAL SUBCUT PRN (13:53)
[2020-02-22] MEDS ORDERED: PSEUDOEPHEDRINE HCL 30 MG TABLET PO PRN (13:53)
[2020-02-22] MEDS ORDERED: DIPHENHYDRAMINE HCL 25 MG CAPSULE PO PRN (13:53)
[2020-02-22] MEDS ORDERED: BENZOCAINE/MENTHOL AEROSOL SPRAY 56 ML TOP PRN (13:53)
[2020-02-22] MEDS ORDERED: DIPH/PERTUSS(ACELL)/TETANUS VAC/PF 0.5 ML SYR (>=10YO) IM PRN (13:53)
[2020-02-22] MEDS ORDERED: GLYCERIN/WITCH HAZEL LEAF 1 EACH MED..WIPE TP PRN (13:53)
[2020-02-22] MEDS ORDERED: FAMOTIDINE 20 MG TABLET PO PRN (13:53)
[2020-02-22] MEDS ORDERED: DIBUCAINE 1% OINTMENT 28 GM TP PRN (13:53)
[2020-02-22] MEDS ORDERED: ACETAMINOPHEN WITH CODEINE #3 TABLET PO PRN (13:53)
--- NOTE | 2020-02-22 15:28 | Delivery Summary ---
Del Sum A-C Datetime Report Generated by CPN: 02/22/2020 15:28 DELIVERY PERSONNEL DELIVERY PERSONNEL: [id number] Delivery Doctor:: Norma Garcia CNM HAND RUG BRAIDER:: Miriam Saenz, HAND RUG BRAIDER Labor and Delivery Nurse:: Diana Sosa, RN Tube Drawer/ANIMAL KILLER: [facility] CHIEF CARDIOPULMONARY TECHNOLOGIST MATERNAL INFORMATION Delivery Anesthesia: Epidural Medications After Delivery: Pitocin 30 Units in 500ml NS/D5W Estimated Blood Loss (ml): 200 Maternal Complications: None LABOR SUMMARY EDC: 02/16/2020 00:00 No. Babies in Womb: 1 Attempted: No Labor Anesthesia: Epidural LABOR INFORMATION Reason for Induction: Post Dates Onset of Labor: 02/22/2020 08:00 Complete Dilatation: 02/22/2020 12:03 Oxytocin: Induction Group B Beta Strep: positive Antibiotics # of Doses: 2 Antibiotics Time of Last Dose: 02/22/2020 10:59 Name of Antibiotic Given: Penicillin Steroids Given: None Reason Steroids Not Administered: Not Applicable MEMBRANES Membranes Rupture Method: Artificial Rupture of Membranes: 02/22/2020 08:00 Length of Rupture (hr): 5.87 Amniotic Fluid Color: Clear Amniotic Fluid Amount: Small Amniotic Fluid Odor: None STAGES OF LABOR Stage 1 hr: 4 Stage 1 min: 3 Stage 2 hr: 1 Stage 2 min: 49 Stage 3 hr: 0 Stage 3 min: 6 Total Time in Labor hr: 5 Total Time in Labor min: 58 VAGINAL DELIVERY Episiotomy: None Laceration #1: None Laceration Extension #1: N/A Laceration Repair: Not Applicable Sponge Count Correct: N/A Sharps Count Correct: N/A CSECTION DELIVERY Primary Indication: N/A Secondary Indication: N/A BABY A INFORMATION Delivery Date/Time: 02/22/2020 13:52 Method of Delivery: Vaginal Nurse Controlled Delivery: No Born in Route : Yes : N/A Forceps: N/A Vacuum Extraction: N/A Shoulder Dystocia : No PRESENTATION/POSITION BABY A Presentation: Cephalic Cephalic Presentation: Vertex Breech Presentation: N/A PLACENTA INFORMATION BABY A Placenta Delivery Time : 02/22/2020 13:58 Placenta Method of Delivery: Spontaneous Placenta Status: Delivered SCORES BABY A Heart Rate 1 min: >100 bpm Resp Effort 1 min: Good Cry Reflex Irritability 1 min: Cough or Sneeze or Pulls Away Muscle Tone 1 min: Active Motion Color 1 min: Body [place], Extremities Blue Resuscitation Effort 1 min: Tactile Stimulation SCORE 1 MIN: 9 Heart Rate 5 min: >100 bpm Resp Effort 5 min: Good Cry Reflex Irritability 5 min: Cough or Sneeze or Pulls Away Muscle Tone 5 min: Active Motion Color 5 min: Body [place], Extremities Blue Resuscitation Effort 5 min: N/A SCORE 5 MIN: 9 INFANT INFORMATION BABY A Gestational Age at Delivery: 40.6 Gestational Status: Full Term- 39- 40.6 Weeks Outcome : Liveborn Infant Condition : Stable Sex: Female IDENTIFICATION BABY A Infant Verification Date/Time: 02/22/2020 14:35 ID Band Number: [id number] Mother's Name Verified: Yes RN Verifying : Scott Sosa RN Additional Verifying Personnel: AMiri Rani RN WEIGHT/LENGTH BABY A Birthweight (gm): 3820 Weight (lb): 8 Weight (oz): 7 Infant Length (in): 20.50 Infant Length (cm): 52.07 CORD INFORMATION BABY A No. Cord Vessels: 3 Nuchal Cord : N/A Cord Blood Taken: Yes-For Eval (Mom's Blood Type - or O+) Infant Suction: Mouth; Nose ASSESSMENT BABY A Infant Complications: None Physical Findings at Delivery: Within Normal Limits Respirations: Appears Normal Skin to Skin: Yes Transferred To: Remains with Mother BABY B INFORMATION : N/A SIGNATURES Signature: with User ID: [email or web address] : I was personally available for consultation and serving as supervising physician for the MLP.
--- NOTE | 2020-02-22 15:28 | Birth Certificate Data ---
Cert Data Datetime Report Generated by CPN: 02/22/2020 15:28 CERTIFICATE DATA Delivery Provider: Norma Garica CNM (02/22/2020 06:11:Cash Arriaga MD (SINA)) 47a. Care: Yes (02/22/2020 06:11:SURJIT Kerns) 47b. Date of First Visit: 08/17/2019 00:00 (02/22/2020 06:11:SURJIT Kerns) 47c. Date of Last Visit: 02/21/2020 00:00 (02/22/2020 06:11:SURJIT Kerns) 47d. Number of Visits: 12 (02/22/2020 06:11:SURJIT Kerns) 48a. Number of Prev Live Births: 1 (02/22/2020 06:11:SURJIT Kerns) 48b. Now Livin (02/22/2020 06:11:SURJIT Kerns) 48c. Live Births Now : 0 (02/22/2020 06:11:QS system process) 48d. Date of Last Live : 05/05/2018 00:00 (02/22/2020 06:11:Marie Warren RNC) 48e. Losses: 0 (02/22/2020 06:11:Marei Bellvaleriynce, RNC) RISK FACTORS IN THIS 49a. Diabetes: No (02/22/2020 06:11:Marie Kamleshe, RNC) 49b. Hypertension: No (02/22/2020 06:11:Marie Bellavance, RNC) 49c. Previous Births: 0 (02/22/2020 06:11:Marie Whitlocke, RNC) 49d. Stillborns: No (02/22/2020 06:11:Marie Bellavance, RNC) 49d. IUGR: No (02/22/2020 06:11:Marie Kamleshe, RNC) 49e. Infertility Treatment: No (02/22/2020 06:11:Marie Kamleshe, RNC) 49f. Previous Cesareans: 0 (02/22/2020 06:11:Marie Bellavance, RNC) Mother's Height 50b. Height Inches: 63 (02/22/2020 06:03:QS system process) Mother's Weight 51a. Pre- Weight (lbs): 136 (02/22/2020 06:11:Marie Warren RNC) 51b. Weight at Delivery (lbs): 161 (02/22/2020 06:03:QS system process) 52. Dt Last Normal Menses Began: 05/12/2019 00:00 (02/22/2020 06:11:Marie Warren RNC) Infections Present/Treated 53a. Gonorrhea: No (02/22/2020 06:11:Marie Kamleshe, RNC) Results this Hospital Visit : Negative (02/22/2020 06:11:Marie Kamleshe, RNC) 53b. Syphilis: No (02/22/2020 06:11:Marie Tinynce, RNC) Results this Hospital Visit: NONREACTIVE (02/22/2020 06:45:QS system process) 53c. Chlamydia: No (02/22/2020 06:11:SURJIT Kerns) Results this Hospital Visit: Negative (02/22/2020 06:11:SURJIT Kerns) 53d. Hepatitis B: No (02/22/2020 06:11:SURJIT Kerns) Results this Hospital Visit: Negative (02/22/2020 06:11:SURJIT Kerns) 53e. Hepatitis C: Negative (02/22/2020 06:11:SURJIT Kerns) 53h. Mother Tested for HBsAG: Yes (02/22/2020 06:11:SURJIT Kerns) 53i. Date Tested: 08/17/2019 00:00 (02/22/2020 06:11:SURJIT Kerns) 53j. Test Result: Negative (02/22/2020 06:11:SURJIT Kerns) Obstetric Procedures 54a, b, c. Obstetric Procedures: Ultrasound (02/22/2020 06:11:SURJIT Kerns) Cigarette Smoking Cigarette Smoking: Never Smoker. [id number] (02/22/2020 06:11:Narcisa Montejo RN) Onset of Labor 56a. PROM >12 Hrs: 5.87 (02/22/2020 06:11:QS system process) 56b. Precipitous Labor <3 Hrs: 5 (02/22/2020 06:11:QS system process) 56c. Prolonged Labor > 20 Hrs: 5 (02/22/2020 06:11:QS system process) 57a. Induction of Labor: Induction (02/22/2020 06:11:Diana Sosa RN) 57c. Non-Vertex Presentation A: Vertex (02/22/2020 06:11:Diana Sosa RN) 57d. Steroids - Lung Mat: None (02/22/2020 06:11:Diana Sosa RN) 57d. Steroids - Lung Mat: Not Applicable (02/22/2020 06:11:Diana Sosa RN) 57e. Antibiotics During Labor: 02/22/2020 10:59 (02/22/2020 06:11:Diana Sosa RN) 57f. Mat [place] or Temp >100.4: 98.5 (02/22/2020 06:11:Diana Sosa RN) 57g. Moderate/Heavy Meconium: Clear (02/22/2020 08:00:Diana Sosa RN) 57h. Intolerance of Labor: N/A (02/22/2020 06:11:Diana Sosa RN) : N/A (02/22/2020 06:11:Diana Sosa RN) 57i. Epidural/Spinal Anesthesia: Epidural (02/22/2020 06:11:Diana Sosa RN) Method of Delivery 58a. Forceps - Unsuccessful A: N/A (02/22/2020 06:11:Diana Sosa RN) 58b. Vacuum - Unsuccessful A: N/A (02/22/2020 06:11:Diana Sosa RN) 58c. Presentation at 58c. Presentation at - A : Vertex (02/22/2020 06:11:Diana Sosa RN) 58c. Presentation at - A : N/A (02/22/2020 06:11:Diana Sosa RN) 58c. Presentation at - A : Cephalic (02/22/2020 06:11:Cash Arriaga MD (Page[employer])) Final Route and Method of Del 58d. Baby A Route/Delivery: Vaginal (02/22/2020 06:11:Cash Arriaga MD ([employer])) 58e. Trial of Labor Attempted: No (02/22/2020 06:11:Diana Sosa RN) 58e. Trial of Labor Attempted A: N/A (02/22/2020 06:11:Diana Sosa RN) 58e. Trial of Labor Attempted B: N/A (02/22/2020 06:11:Diana Sosa RN) Maternal Morbidity 59b. 3rd or 4th Degree Lacs: None (02/22/2020 06:11:Cash Arriaga, MD (WEB)) Birthweight Baby A: 3820 (02/22/2020 06:11:Ilda Naqvi RN) 60a. Pounds : 8 (02/22/2020 06:11:QS system process) 60b. Ounces: 7 (02/22/2020 06:11:QS system process) 61. GA at Delivery Baby A: 40.6 (02/22/2020 06:11:Diana Sosa RN) : Full Term- 39- 40.6 Weeks (02/22/2020 06:11:QS system process) 62a. 5 Minute Baby A: 9 (02/22/2020 06:11:QS system process)
[2020-02-22] MEDS: IBUPROFEN 800 MG TABLET PO SCH ×2 (17:29→21:17)
[2020-02-22] MEDS: FERROUS SULFATE 325 MG TABLET PO SCH (18:25)
[2020-02-22] MEDS: DOCUSATE SODIUM 100 MG CAPSULE PO SCH (18:25)
[2020-02-23] MEDS: IBUPROFEN 800 MG TABLET PO SCH ×3 (05:58→23:26)
[2020-02-23 07:28] LABS: HEMOGLOBIN 10.1 g/dL (12.0-15.5); MEAN CORPUSCULAR HEMOGLOBIN 29.8 pg (27.0-33.4); MEAN CORPUSCULAR HGB CONC 34.9 g/dL (32.0-36.0); MEAN CORPUSCULAR VOLUME 85 fl (80-97); PLATELET COUNT 169 10^3/uL (150-450); RED CELL DISTRIBUTION WIDTH 13.9 % (11.5-14.0); WHITE BLOOD COUNT 12.7 10^3/uL (4.0-10.5)
[2020-02-23] MEDS: PENICILLIN G POTASSIUM 2,500,000 UNIT in DEXTROSE 5%-WATER 50 ML IV SCH ×2 (08:08→08:09)
[2020-02-23] MEDS: SENNOSIDES/DOCUSATE 8.6-50 MG 1 EACH TABLET PO SCH (09:58)
[2020-02-23] MEDS: PRENATAL VITAMIN W DHA CAPSULE PO SCH (09:58)
[2020-02-23] MEDS: DOCUSATE SODIUM 100 MG CAPSULE PO SCH ×2 (09:58→17:43)
[2020-02-23] MEDS: FERROUS SULFATE 325 MG TABLET PO SCH ×2 (09:59→17:43)
--- NOTE | 2020-02-23 10:54 | PDOC PROGRESS REPORT ---
Subjective-OB Progress Note for:: 02/23/20 Subjective: Pt doing well, no concerns. She reports light bleeding, reg diet and voiding w/o difficulty. Physical Exam (OB) Vital Signs: Temp Pulse Resp BP Pulse Ox 97.6 F 62 16 98/47 L 99 02/23/20 08:59 02/23/20 07:14 02/23/20 07:14 02/23/20 07:14 02/23/20 07:14 Intake & Output 02/22/20 02/23/20 02/24/20 06:59 06:59 06:59 Intake Total 100 Balance 100 Weight 73.1 kg - PIH/Pre-Eclampsia Clonus: Negative Headache: Absent Epigastric Pain: No Visual Changes: No - Maternal Morbidity 59. Maternal Morbidity (serious complications experinced by the mother associated with labor and delivery: None of the above - Lochia Lochia Amount: Scant < 10 ml Lochia Color: Rubra/Red - Abdomen Description: Soft, Round Hernia Present: No Fundal Description: Firm, Midline Fundal Height: u/u - u/2 Objective-Diagnostic Laboratory: 02/23/20 06:52 02/22/20 02/23/20 06:45 06:52 WBC 12.7 H RBC 3.40 L Hgb 10.1 L Hct 29.0 L MCV 85 MCH 29.8 MCHC 34.9 RDW 13.9 Plt Count 169 Blood Type O NEGATIVE Antibody Screen POSITIVE Assessment and Plan(PN) - Assessment and Plan (1) Encounter for induction of labor Is this a current diagnosis for this admission?: Yes (2) Normal course Is this a current diagnosis for this admission?: Yes (3) Delivery normal Is this a current diagnosis for this admission?: Yes - Time Spent with Patient Time with patient: Less than 15 minutes Medications reviewed and adjusted accordingly: Yes - Disposition Anticipated Discharge Disposition: Home, Self Care Anticipated Discharge Timeframe: within 24 hours
[2020-02-24] MEDS: IBUPROFEN 800 MG TABLET PO SCH ×2 (06:38→14:27)
[2020-02-24 08:31] VITALS: BP 112/59
--- NOTE | 2020-02-24 09:51 | PDOC DISCHARGE SUMMARY ---
Impression - Admit/DC Date/PCP Admission Date/Primary Care Provider: 02/22/20 05:43 LILLI LAMBERT MD Discharge Date: 02/24/20 - Discharge Diagnosis (1) Encounter for induction of labor Is this a current diagnosis for this admission?: Yes (2) Normal course Is this a current diagnosis for this admission?: Yes (3) Delivery normal Is this a current diagnosis for this admission?: Yes - Additional Information Resuscitation Status: Full Code Discharge Diet: Regular Discharge Activity: Balance Activity w/Rest, Pelvic Rest Referrals: LILLI LAMBERT MD [Primary Care Provider] - Prescriptions: Ibuprofen [Motrin 800 mg Tablet] 800 mg PO Q8HP PRN #60 tablet PRN Reason: Home Medications: Vit,Calc76/Iron/Folic [Prenatabs Rx Tablet] 1 tab PO DAILY 03/04/18 Ibuprofen [Motrin 800 mg Tablet] 800 mg PO Q8HP PRN #60 tablet 02/24/20 HPI Gestational Age: 40.6 Reason(s) for Admission: Induction of Labor Procedures: NST Intrapartum Procedure(s): Spontaneous Vaginal Delivery Hospital Course 59. Maternal Morbidity (serious complications experinced by the mother associated with labor and delivery: None of the above Results Laboratory Results: WBC 12.7 10^3/uL (4.0-10.5) H 02/23/20 06:52 RBC 3.40 10^6/uL (3.72-5.28) L 02/23/20 06:52 Hgb 10.1 g/dL (12.0-15.5) L 02/23/20 06:52 Hct 29.0 % (36.0-47.0) L 02/23/20 06:52 MCV 85 fl (80-97) 02/23/20 06:52 MCH 29.8 pg (27.0-33.4) 02/23/20 06:52 MCHC 34.9 g/dL (32.0-36.0) 02/23/20 06:52 RDW 13.9 % (11.5-14.0) 02/23/20 06:52 Plt Count 169 10^3/uL (150-450) 02/23/20 06:52 Lymph % (Auto) 14.8 % (13-45) 02/22/20 06:45 [place] % (Auto) 7.5 % (3-13) 02/22/20 06:45 Eos % (Auto) 1.3 % (0-6) 02/22/20 06:45 Baso % (Auto) 0.3 % (0-2) 02/22/20 06:45 Absolute Neuts (auto) 9.0 10^3/uL (1.7-8.2) H 02/22/20 06:45 Absolute Lymphs (auto) 1.7 10^3/uL (0.5-4.7) 02/22/20 06:45 Absolute Monos (auto) 0.9 10^3/uL (0.1-1.4) 02/22/20 06:45 Absolute Eos (auto) 0.2 10^3/uL (0.0-0.6) 02/22/20 06:45 Absolute Basos (auto) 0.0 10^3/uL (0.0-0.2) 02/22/20 06:45 Seg Neutrophils % 76.1 % (42-78) 02/22/20 06:45 Urine Color LIGHT YELLOW 02/22/20 06:00 Urine Appearance HAZY 02/22/20 06:00 Urine pH 8.0 (5.0-9.0) 02/22/20 06:00 Ur Specific [place] 1.005 02/22/20 06:00 Urine Protein NEGATIVE mg/dL (NEGATIVE) 02/22/20 06:00 Urine Glucose (UA) NEGATIVE mg/dL (NEGATIVE) 02/22/20 06:00 Urine Ketones NEGATIVE mg/dL (NEGATIVE) 02/22/20 06:00 Urine Blood SMALL (NEGATIVE) H 02/22/20 06:00 Urine Nitrite NEGATIVE (NEGATIVE) 02/22/20 06:00 Urine Bilirubin NEGATIVE (NEGATIVE) 02/22/20 06:00 Urine Urobilinogen NEGATIVE mg/dL (<2.0) 02/22/20 06:00 Ur Leukocyte Esterase LARGE (NEGATIVE) H 02/22/20 06:00 Urine Ascorbic Acid NEGATIVE (NEGATIVE) 02/22/20 06:00 Urine Opiates Screen NEGATIVE 02/22/20 06:00 Urine Methadone Screen NEGATIVE 02/22/20 06:00 Ur Barbiturates Screen NEGATIVE 02/22/20 06:00 Ur Phencyclidine Scrn NEGATIVE 02/22/20 06:00 Ur Amphetamines Screen NEGATIVE 02/22/20 06:00 U Benzodiazepines Scrn NEGATIVE 02/22/20 06:00 Urine Cocaine Screen NEGATIVE 02/22/20 06:00 U Marijuana (THC) Screen NEGATIVE 02/22/20 06:00 RPR NONREACTIVE (NONREACTIVE) 02/22/20 06:45 Blood Type O NEGATIVE 02/22/20 06:45 Antibody Screen POSITIVE 02/22/20 06:45 Antibody Identification RHOGAM INDUCED ANTI-D 02/22/20 06:45 Crossmatch See Detail 02/22/20 06:45 Plan Plan of Treatment: f/u at [facility] 4 wks Time Spent: Less than 30 Minutes
[2020-02-24] MEDS: PRENATAL VITAMIN W DHA CAPSULE PO SCH (10:14)
[2020-02-24] MEDS: FERROUS SULFATE 325 MG TABLET PO SCH (10:14)
[2020-02-24] MEDS: SENNOSIDES/DOCUSATE 8.6-50 MG 1 EACH TABLET PO SCH (10:14)
[2020-02-24] MEDS: DOCUSATE SODIUM 100 MG CAPSULE PO SCH (10:14)
== END 2020-02-24 14:38 | disposition home or self-care (01) | DRG 807 ==
LOC: LR 05:43 → 2S 16:05
PROVIDERS: ADMIT Obstetrics & Gynecology; ATTEND Obstetrics & Gynecology
PROC: 10E0XZZ Delivery of Products of Conception, External Approach (ICD-10-PCS; principal; 2020-02-22)
DX: O48.0 Post-term pregnancy (principal); Z37.0 Single live birth; O99.824 Streptococcus B carrier state complicating childbirth; Z88.2 Allergy status to sulfonamides; Z3A.40 40 weeks gestation of pregnancy
CPT/HCPCS: 1967; 36415; 80307; 81005; 85025; 85027; 86592; 86850; 86870; 86900; 86901; 86920; 86922; 94760; J2540; J2590; J2795; J3010; J3490; J7060